=== PATIENT | male | born 1990 | race Caucasian/White ===

== ENCOUNTER 2020-07-17 09:34 | Emergency (ER) | payer OTHER, SELFPAY ==
[2020-07-17] VITALS (26 sets, daily range): BP systolic 118–145; BP diastolic 58–81; PULSE 75–108; RESP 14–18; TEMP 36.6; O2SAT 99–100
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
[2020-07-17 10:11] LABS: Abs Immature Grans 0.01 10^3/uL (0.0-0.06); Absolute Basophil Count 0.03 10^3/uL (0.0-0.2); Absolute Lymphocyte Count 1.48 10^3/uL (1.2-3.4); Absolute Monocyte Count 0.38 10^3/uL (0.1-0.8); Absolute Neutrophil Count 3.35 10^3/uL (1.2-6.7); Basophils % 0.6; Eosinophils % 1.9; HGB 16.7 g/dL (13.5-17.5); Immature Grans % 0.2; Lymphocytes % 27.7; MCH 30.5 pg (27.0-33.0); MCHC 35.5 % (32.0-36.0); MCV 85.9 fL (80-95); MPV 9.5 fL (8.0-11.0); Monocytes % 7.1; Neutrophils % 62.5; Nucleated RBC 0 %; Platelet Count 230 10^3/uL (130-400); RBC 5.47 10^6/uL (4.36-5.78); RDW 11.8 % (11.8-14.1); RDW-SD 37.2 fL; WBC 5.35 10^3/uL (4.4-10.8)
[2020-07-17] MEDS: Normal Saline 1,000 ML 1000 ML IV (10:20)
[2020-07-17] MEDS: Normal Saline - Diluent 50 ML VIAL IV (10:32)
[2020-07-17] MEDS: Normal Saline Flush 10 ML SYR IVP (10:33)
[2020-07-17 10:44] LABS: ALT 23 U/L (16-63); AST 11 U/L (15-37); Albumin 4.3 g/dL (3.4-5.0); Alkaline Phosphatase 70 U/L (46-116); Anion Gap 12.3 mmol/L (3-11); BUN 13 mg/dL (7-18); Bilirubin, Total 0.7 mg/dL (0.2-1.0); CO2 24.7 mmol/L (21.0-32.0); CREATININE 1.1 mg/dL (0.70-1.30); Calcium 9.2 mg/dL (8.5-10.1); Chloride 103 mmol/L (98-107); Glucose 103 mg/dL (74-106); Potassium 3.4 mmol/L (3.5-5.1); Sodium 140 mmol/L (136-145); Total Protein 7.7 g/dL (6.4-8.2)
[2020-07-17] MEDS: Ketorolac 30 MG/ML VIAL IVP (11:37)
== END 2020-07-17 12:13 | disposition home or self-care (01) ==
PROVIDERS: Emergency Provider Physician Assistant; PCP Physician Assistant
DX: S16.1XXA Strain of muscle, fascia and tendon at neck level, initial encounter (principal); S39.012A Strain of muscle, fascia and tendon of lower back, initial encounter; V89.2XXA Person injured in unspecified motor-vehicle accident, traffic, initial encounter
CPT/HCPCS: 74177; 80053; 96361; 96374; 99285; 70450; 71260; 72125; 85025; 99283; J1885

== ENCOUNTER 2020-07-26 11:05 | Outpatient (CLI) | payer OTHER, SELFPAY ==
--- NOTE | 2020-08-27 08:43 | W.CARDEVENT ---
Date of service: 08/27/20 Time of Service: 08:43 Cardiac Event Recorder Referring Provider:: Amber Indications:: Palpitation Cardiac Event Note: This is a 30-day monitor order for indication of palpitations. ?The patient was monitored for total of 11 days over the 30-day recorder. ?The patient was in normal sinus rhythm for the majority of the recording with an average heart rate of 82 bpm. ?There were no episodes of supraventricular tachycardia and 1 brief 3 beat run of NSVT. ?There were no episodes of atrial fibrillation, no pauses greater than 3 seconds and no evidence of high degree heart block. ?There were 4 patient triggered events 1 of us was associated with a 3 beat run of NSVT. The rest associated with sinus tachycardia.
== END 2020-07-26 11:06 | disposition home or self-care (01) ==
LOC: RT 11:06
PROVIDERS: PCP Physician Assistant; Visit Provider Nurse Practitioner Family
DX: R00.2 Palpitations (principal); Z53.20 Procedure and treatment not carried out because of patient's decision for unspecified reasons
CPT/HCPCS: 93270

== ENCOUNTER 2020-09-06 09:11 | Outpatient (CLI) | payer OTHER, SELFPAY ==
--- NOTE | 2020-09-06 08:45 | DI.RAD_ITS ---
Exam(s) XR WRIST RT COMPLETE EXAM: XR WRIST RT COMPLETE CLINICAL HISTORY: RIGHT WRIST PAIN. TECHNIQUE: 2D digital imaging was performed. COMPARISON: No exams were available for comparison FINDINGS: BONES: No acute fracture is present. No bony destructive lesion is seen. JOINTS: The carpal bones are normally aligned. SOFT TISSUE: Normal. IMPRESSION: Unremarkable radiographs of the right wrist. DATA REPOSITORY: RADIATION DOSE DELIVERED:
--- NOTE | 2020-09-06 08:45 | DI.RAD_ITS ---
Exam(s) XR WRIST LT COMPLETE EXAM: XR WRIST LT COMPLETE CLINICAL HISTORY: LEFT WRIST PAIN. TECHNIQUE: 2D digital imaging was performed. COMPARISON: No exams were available for comparison FINDINGS: BONES: No acute fracture is present. No bony destructive lesion is seen. JOINTS: The carpal bones are normally aligned. SOFT TISSUE: Normal. IMPRESSION: Unremarkable radiographs of the left wrist. DATA REPOSITORY: RADIATION DOSE DELIVERED:
--- NOTE | 2020-09-06 08:45 | DI.RAD_ITS ---
Exam(s) XR ELBOW RT COMPLETE EXAM: XR ELBOW RT COMPLETE CLINICAL HISTORY: RIGHT ELBOW PAIN. TECHNIQUE: 2D digital imaging was performed. COMPARISON: No exams were available for comparison FINDINGS: BONES: No acute fracture is present. No bony destructive lesion is seen. JOINTS: The elbow is normally aligned. No joint effusion is seen. SOFT TISSUE: Normal. IMPRESSION: Unremarkable radiographs of the right elbow. DATA REPOSITORY: RADIATION DOSE DELIVERED:
--- NOTE | 2020-09-06 08:45 | DI.RAD_ITS ---
Exam(s) XR ELBOW LT COMPLETE EXAM: XR ELBOW LT COMPLETE CLINICAL HISTORY: ELBOW PAIN. TECHNIQUE: 2D digital imaging was performed. COMPARISON: No exams were available for comparison FINDINGS: BONES: No acute fracture is present. No bony destructive lesion is seen. JOINTS: The elbow is normally aligned. No joint effusion is seen. SOFT TISSUE: Normal. IMPRESSION: Unremarkable radiographs of the left elbow. DATA REPOSITORY: RADIATION DOSE DELIVERED:
== END 2020-09-06 09:12 | disposition home or self-care (01) ==
LOC: DIORS 09:12
PROVIDERS: PCP Physician Assistant; Referring Provider Physician Assistant; Visit Provider Student in an Organized Health Care Education/Training Program
DX: M25.531 Pain in right wrist (principal); M25.532 Pain in left wrist; M25.521 Pain in right elbow; M25.522 Pain in left elbow
CPT/HCPCS: 73080; 73110

== ENCOUNTER 2021-08-18 15:10 | Outpatient (REF) | payer BC, SELFPAY ==
[2021-08-18 16:00] LABS: Hemoglobin A1C 5.1 % (<5.7)
[2021-08-18 16:13] LABS: Magnesium 1.9 mg/dL (1.8-2.4)
== END 2021-08-18 15:11 | disposition home or self-care (01) ==
LOC: NCHCN 15:10
PROVIDERS: PCP Physician Assistant; Visit Provider Nurse Practitioner Family
DX: Z00.00 Encounter for general adult medical examination without abnormal findings (principal); Z13.1 Encounter for screening for diabetes mellitus
CPT/HCPCS: 83036; 83735

== ENCOUNTER 2022-09-03 16:28 | Outpatient (REF) | payer OTHER, SELFPAY ==
[2022-09-03 19:08] LABS: ALT 23 U/L (16-63); AST 21 U/L (15-37); Albumin 4.3 g/dL (3.4-5.0); Alkaline Phosphatase 71 U/L (46-116); Anion Gap 6.3 mmol/L (3-11); BUN 14 mg/dL (7-18); Bilirubin, Total 0.4 mg/dL (0.2-1.0); CO2 28.7 mmol/L (21.0-32.0); Calcium 9.2 mg/dL (8.5-10.1); Calculated LDL 88 mg/dL (<100); Chloride 106 mmol/L (98-107); Cholesterol 159 mg/dL (<200); Estimated GFR 102.55 (mL/min/1.73m2); Glucose 93 mg/dL (74-106); HDL Cholesterol 43 mg/dL (40-60); Potassium 3.9 mmol/L (3.5-5.1); Sodium 141 mmol/L (136-145); Total Protein 7.5 g/dL (6.4-8.2); Triglyceride 142 mg/dL (<150)
== END 2022-09-03 16:29 | disposition home or self-care (01) ==
LOC: NCHCN 16:28
PROVIDERS: PCP Physician Assistant; Visit Provider Nurse Practitioner Family
DX: Z00.00 Encounter for general adult medical examination without abnormal findings (principal); Z83.49 Family history of other endocrine, nutritional and metabolic diseases
CPT/HCPCS: 80053; 80061

== ENCOUNTER 2022-09-16 01:44 | Outpatient (CLI) | payer OTHER, SELFPAY ==
--- NOTE | 2022-09-16 14:38 | DI.RAD_ITS ---
Exam(s) XR SHOULDER LT COMPLETE 2+V EXAM: XR SHOULDER LT COMPLETE 2+V CLINICAL HISTORY: LT SHOULDER PAIN, M25.512. TECHNIQUE: 2D digital imaging was performed of the left shoulder. Five images were obtained. AP, G rashey, Y-view and axillary views were obtained. COMPARISON: No exams were available for comparison FINDINGS: BONES: No acute fracture is present. No bony destructive lesion is seen. JOINTS: No dislocation present. The joint spaces are well maintained. SOFT TISSUE: Normal. IMPRESSION: Unremarkable radiographs of the left shoulder. DATA REPOSITORY: RADIATION DOSE DELIVERED:
== END 2022-09-16 02:04 ==
LOC: DI 01:45
PROVIDERS: PCP Physician Assistant; Visit Provider Nurse Practitioner Family
DX: M25.512 Pain in left shoulder (principal)
CPT/HCPCS: 73030

== ENCOUNTER → 2022-11-02 01:22 | Outpatient (CLI) | payer OTHER, SELFPAY ==
--- NOTE | 2022-11-02 07:36 | DI.MRI_ITS ---
Exam(s) MR UPPER JOINT LT WO EXAM: MR UPPER JOINT LT WO CLINICAL HISTORY: L SHOULDER PAIN,tendinopathy lt biceps tendon,[id number]. TECHNIQUE: Multiplanar multisequence MRI was performed. COMPARISON: 16 September 2022 FINDINGS: BONES: There is no fracture or contusion pattern. JOINTS:The acromioclavicular joint is normal. The glenohumeral joint is normal. TENDONS: Supraspinatus: Mild amount of edema anteriorly. No evidence of tear or significant thickening. Infraspinatus: Unremarkable. Subscapularis: Unremarkable. Teres [place]: Unremarkable. Biceps and [place]: Unremarkable. MUSCLES: Unremarkable. GLENOID LABRUM: Unremarkable on this noncontrast examination. SOFT TISSUES: Unremarkable. OTHER: Subacromial and subdeltoid bursae shows minimal fluid.. IMPRESSION: Mild supraspinatus tendinosis. The biceps tendon appears intact.. DATA REPOSITORY:
== END ==
PROVIDERS: PCP Nurse Practitioner Family; Visit Provider Student in an Organized Health Care Education/Training Program
DX: M67.813 Other specified disorders of tendon, right shoulder (principal)
CPT/HCPCS: 73221

== ENCOUNTER 2022-12-28 16:59 | Outpatient (REF) | payer OTHER, SELFPAY ==
[2022-12-28 16:56] LABS: Source Nasal/Nares
[2022-12-28 17:52] LABS: COVID-19 PCR Negative (Negative)
== END 2022-12-28 17:00 | disposition home or self-care (01) ==
LOC: LBN 16:59
PROVIDERS: PCP Nurse Practitioner Family; Visit Provider Nurse Practitioner Family
DX: Z20.822 Contact with and (suspected) exposure to COVID-19 (principal); R05.1 Acute cough
CPT/HCPCS: 87635

== ENCOUNTER → 2023-01-08 21:10 | Outpatient (CLI) | payer OTHER, SELFPAY ==
--- NOTE | 2023-01-08 13:56 | DI.RAD_ITS ---
Exam(s) XR CHEST 2V PA LATERAL EXAM: XR CHEST 2V PA LATERAL CLINICAL HISTORY: ACUTE COUGH R05.1 ? PNEUMONIA TECHNIQUE: 2D digital imaging was performed. COMPARISON: CT CT CHEST/ABD/PEL W from 07/17/2020 FINDINGS: HEART: Normal size. Aorta: Not dilated. PULMONARY VASCULATURE: Normal. LUNGS: Clear. PLEURAL SPACE: No pleural effusion or pneumothorax. BONE:Unremarkable for age. IMPRESSION: No acute abnormality. DATA REPOSITORY: RADIATION DOSE DELIVERED:
== END ==
PROVIDERS: PCP Nurse Practitioner Family; Visit Provider Physician Assistant Medical
DX: R05.1 Acute cough (principal)
CPT/HCPCS: 71046

== ENCOUNTER 2023-03-15 14:16 | Outpatient (REF) | payer OTHER, SELFPAY ==
[2023-03-15 14:52] LABS: Source Nasal/Nares
[2023-03-15 15:20] LABS: Abs Immature Grans 0.01 10^3/uL (0.0-0.06); Absolute Basophil Count 0.02 10^3/uL (0.0-0.2); Absolute Eosinophil Count 0.07 10^3/uL (0.0-0.7); Absolute Lymphocyte Count 1.21 10^3/uL (1.2-3.4); Absolute Monocyte Count 0.31 10^3/uL (0.1-0.8); Absolute Neutrophil Count 1.22 10^3/uL (1.2-6.7); Basophils % 0.7; Eosinophils % 2.5; HCT 45.2 % (40.0-50.0); HGB 15.9 g/dL (13.5-17.5); Immature Grans % 0.4; Lymphocytes % 42.6; MCH 30.3 pg (27.0-33.0); MCHC 35.2 % (32.0-36.0); MCV 86 fL (80-95); MPV 10.3 fL (8.0-11.0); Monocytes % 10.9; Neutrophils % 42.9; Platelet Count 139 10^3/uL (130-400); RBC 5.24 10^6/uL (4.36-5.78); RDW 12.1 % (11.8-14.1); RDW-SD 38.5 fL; WBC 2.84 10^3/uL (4.4-10.8)
[2023-03-15 15:53] LABS: COVID-19 PCR Negative (Negative)
== END 2023-03-15 14:17 | disposition home or self-care (01) ==
LOC: LBN 14:16
PROVIDERS: PCP Nurse Practitioner Family; Visit Provider Nurse Practitioner Family
DX: R05.8 Other specified cough (principal); R51.9 Headache, unspecified; Z20.822 Contact with and (suspected) exposure to COVID-19
CPT/HCPCS: 87635; 85025

== ENCOUNTER → 2023-06-04 12:45 | Outpatient (CLI) | payer OTHER, SELFPAY ==
--- NOTE | 2023-06-04 09:50 | DI.RAD_ITS ---
Exam(s) XR CHEST 2V PA LATERAL EXAM: XR CHEST 2V PA LATERAL CLINICAL HISTORY: COUGH R05.9 TECHNIQUE: 2D digital imaging was performed of the chest. Two images were obtained. PA and lateral views were obtained. COMPARISON: CR XR CHEST 2V PA LATERAL from 01/08/2023 FINDINGS: MEDIASTINUM: Normal. HEART: Normal. PULMONARY VASCULATURE: Normal. LUNGS: Clear. PLEURAL SPACE: No pleural effusion or pneumothorax. BONE:Within normal limits for the patient's age. OTHER FINDINGS:Normal. IMPRESSION: No acute pulmonary findings. DATA REPOSITORY: RADIATION DOSE DELIVERED:
== END ==
PROVIDERS: PCP Nurse Practitioner Family; Visit Provider Nurse Practitioner Family
DX: R05.9 Cough, unspecified (principal)
CPT/HCPCS: 71046

== ENCOUNTER 2023-06-17 05:50 | Outpatient (CLI) | payer OTHER, SELFPAY ==
[2023-06-17] MEDS: Albuterol HFA 18 GM 200 PUFF INH IH (16:46)
[2023-06-17] MEDS: Methacholine 100 MG VIAL IH (16:46)
[2023-06-17] MEDS: Inhaler, Assist Device 1 EACH MC (16:47)
--- NOTE | 2023-06-21 08:15 | W.PFT ---
Date of service: 06/17/23 Time of Service: 14:18 Pulmonary Function Test Result Indications: Cough Interpretation Spirometry: There is no baseline airflow obstruction. There was a decrease in FEV1 of 37% with administration of 2.0mg/mL methacholine. Lung Volumes: Normal lung volumes. Diffusion Capacity: Elevated diffusion Airway Pressure: Normal airways resistance Impression Positive methacholine challenge test and otherwise normal lung function. Elevated diffusion may be due to an elevated BMI. Clinical Correlation therefore is recommended.
== END 2023-06-17 05:51 | disposition home or self-care (01) ==
LOC: RT 05:50
PROVIDERS: PCP Nurse Practitioner Family; Visit Provider Student in an Organized Health Care Education/Training Program
DX: R05.9 Cough, unspecified (principal)
CPT/HCPCS: 94060; 94070; 94726; 94729; 94010; J7674

== ENCOUNTER 2023-07-15 16:32 | Outpatient (REF) | payer OTHER, SELFPAY ==
[2023-07-15 18:47] LABS: HCT 44.7 % (40.0-50.0); HGB 15.6 g/dL (13.5-17.5); MCH 30.9 pg (27.0-33.0); MCHC 34.9 % (32.0-36.0); MCV 89 fL (80-95); MPV 9.7 fL (8.0-11.0); Platelet Count 274 10^3/uL (130-400); RBC 5.05 10^6/uL (4.36-5.78); RDW 12.5 % (11.8-14.1); RDW-SD 40.6 fL; WBC 6.44 10^3/uL (4.4-10.8)
[2023-07-15 19:10] LABS: Hemoglobin A1C 5.3 % (<5.7)
[2023-07-15 19:20] LABS: Vitamin D 25 Total 14.7 ng/mL (30-100)
[2023-07-15 19:23] LABS: TSH (W/Ref FT4) 1.61 uIU/mL (0.36-3.74); Vitamin B12 283 pg/mL (193-986)
== END 2023-07-15 16:33 | disposition home or self-care (01) ==
LOC: NCHCN 16:32
PROVIDERS: PCP Nurse Practitioner Family; Visit Provider Nurse Practitioner Family
DX: D72.819 Decreased white blood cell count, unspecified (principal); R20.2 Paresthesia of skin; E83.42 Hypomagnesemia; E55.9 Vitamin D deficiency, unspecified; Z13.1 Encounter for screening for diabetes mellitus; Z83.3 Family history of diabetes mellitus
CPT/HCPCS: 82306; 85027; 82607; 83036; 83735; 84443

== ENCOUNTER 2023-09-07 18:12 | Outpatient (REF) | payer OTHER, SELFPAY | END 2023-09-07 18:13 | disposition home or self-care (01) | LOC: LBN 18:12 | PROVIDERS: PCP Nurse Practitioner Family; Visit Provider Nurse Practitioner Family | DX: J02.9 Acute pharyngitis, unspecified (principal) | CPT/HCPCS: 87070 ==

== ENCOUNTER 2023-10-08 07:56 | Emergency (ER) | payer OTHER, SELFPAY ==
[2023-10-08 07:58] VITALS: BP 168/97; PULSE 95; RESP 13; TEMP 36.8; O2SAT 99
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
[2023-10-08 09:24] VITALS: BP 133/88; PULSE 69; RESP 20; TEMP 36.2; O2SAT 99
[2023-10-08] MEDS: Acetaminophen 325 MG TAB (09:32)
== END 2023-10-08 10:11 | disposition home or self-care (01) ==
PROVIDERS: Emergency Provider Student in an Organized Health Care Education/Training Program; PCP Nurse Practitioner Family
DX: S16.1XXA Strain of muscle, fascia and tendon at neck level, initial encounter (principal); S06.0X0A Concussion without loss of consciousness, initial encounter; S20.224A Contusion of middle back wall of thorax, initial encounter; Z87.891 Personal history of nicotine dependence; V43.52XA Car driver injured in collision with other type car in traffic accident, initial encounter
CPT/HCPCS: 99284; 70450; 72125; 72128

== ENCOUNTER 2023-10-25 13:18 | Emergency (ER) | payer OTHER, SELFPAY ==
[2023-10-25 13:25] VITALS: BP 170/76; PULSE 84; RESP 12; TEMP 36.8; O2SAT 97
--- NOTE | 2023-10-25 16:00 | DI.RAD_ITS ---
Exam(s) XR TIB/FIB LT XR ANKLE LT COMPLETE EXAM: XR TIB/FIB LT and XR ankle LT complete CLINICAL HISTORY: anterior ankle and dunbar pain. TECHNIQUE: 2D digital imaging was performed of the left ankle, tibia and fibula. Seven images were o btained. The, oblique and lateral views were obtained. COMPARISON: No previous for comparison. FINDINGS: BONES: No acute fracture is present. No bony destructive lesion is seen. The visualized knee appears well maintained. The ankle mortise is intact and normally aligned. SOFT TISSUE: Normal. IMPRESSION: No acute fracture or dislocation. No periosteal reaction is seen. DATA REPOSITORY: RADIATION DOSE DELIVERED:
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
[2023-10-25] MEDS: Ketorolac 15 MG/ML VIAL IM (16:34)
[2023-10-25] MEDS: Cyclobenzaprine 10 MG TAB PO (16:34)
[2023-10-25] MEDS: Lidocaine 5% Patch 1 PATCH TP (16:35)
[2023-10-25 17:20] VITALS: BP 157/86; PULSE 88; RESP 16; O2SAT 99
== END 2023-10-25 17:22 | disposition home or self-care (01) ==
PROVIDERS: Emergency Provider Emergency Medicine; PCP Nurse Practitioner Family
DX: M25.572 Pain in left ankle and joints of left foot (principal)
CPT/HCPCS: 99283; 73590; 73610; J1885

== ENCOUNTER 2023-11-04 22:40 | Outpatient (REF) | payer OTHER, SELFPAY ==
[2023-11-04 11:25] LABS: Uric Acid 6.6 mg/dL (3.5-7.2)
== END 2023-11-04 22:41 | disposition home or self-care (01) ==
LOC: NCHCN 22:40
PROVIDERS: PCP Nurse Practitioner Family; Visit Provider Nurse Practitioner Family
DX: M25.572 Pain in left ankle and joints of left foot (principal)
CPT/HCPCS: 84550

== ENCOUNTER 2023-12-20 13:57 | Outpatient (CLI) | payer OTHER, SELFPAY ==
--- NOTE | 2023-12-20 | DI.RAD_ITS ---
Exam(s) XR SHOULDER RT COMPLETE 2+V EXAM: XR SHOULDER RT COMPLETE 2+V CLINICAL HISTORY: Pain in rt shoulder s/p slipping down ladder 4 days ago, caught himself. TECHNIQUE: 2D digital imaging was performed of the right shoulder. Five images were obtained. AP, Grashey, Y-view and axillary views were obtained. COMPARISON: No exams were available for comparison FINDINGS: BONES: No acute fracture is present. No bony destructive lesion is seen. JOINTS: No dislocation present. The acromioclavicular and glenohumeral joints are unremarkable. SOFT TISSUE: Normal. IMPRESSION: Unremarkable radiographs of the right shoulder. DATA REPOSITORY: RADIATION DOSE DELIVERED:
== END 2023-12-20 14:17 ==
LOC: DI 14:02
PROVIDERS: PCP Nurse Practitioner Family; Visit Provider Nurse Practitioner Family
DX: M25.511 Pain in right shoulder (principal)
CPT/HCPCS: 73030

== ENCOUNTER 2024-03-17 13:04 | Outpatient (CLI) | payer OTHER, SELFPAY ==
--- NOTE | 2024-03-17 15:27 | DI.RAD_ITS ---
Exam(s) XR HIP LT COMPLETE AP PELVIS EXAM: XR HIP LT COMPLETE AP PELVIS CLINICAL HISTORY: LT HIP JOINT PAIN, M25.552. TECHNIQUE: 2D digital imaging was performed. COMPARISON: No exams were available for comparison FINDINGS: Two views. No evidence of pelvic nor hip fracture. No hip joint space narrowing. Additional lateral view of th e left hip reveals no joint space narrowing nor osteophytes. No osseous lesions. No evidence of nidia scular necrosis. Sacroiliac joints appear unremarkable. IMPRESSION: No significant osseous findings in the pelvis and hips. DATA REPOSITORY: RADIATION DOSE DELIVERED:
== END 2024-03-17 13:24 ==
LOC: DI 13:06
PROVIDERS: PCP Nurse Practitioner Family; Visit Provider Nurse Practitioner Family
DX: M25.552 Pain in left hip (principal)
CPT/HCPCS: 73502

== ENCOUNTER 2024-06-07 03:34 | Outpatient (CLI) | payer OTHER, SELFPAY ==
--- NOTE | 2024-06-07 10:00 | DI.MRI_ITS ---
Exam(s) MR LUMBAR SPINE WO EXAM: MR LUMBAR SPINE WO CLINICAL HISTORY: Radiculopathy, lumbosacral region, M54.17. TECHNIQUE: Multiplanar multisequence MRI of the Lumbar spine was performed. COMPARISON: No exams were available for comparison FINDINGS: Bones: The last intervertebral disc space is designated the L5/S1 level for the numbering purpose of this examination. The vertebral body heights are well maintained. Alignment is satisfactory. The si gnal characteristics are unremarkable. Cord: The conus tip ends at the T12 level. It is of normal size and signal intensity. T12-L1: No disc herniations or bulges are present. No central spinal canal or neural foraminal stenos is. L1-2: No disc herniations or bulges are present. No central spinal canal or neural foraminal stenosis . L2-3: No disc herniations or bulges are present. No central spinal canal or neural foraminal stenosis . L3-4: No disc herniations or bulges are present. No central spinal canal or neural foraminal stenosis . L4-5: There is a mild diffuse disc bulge and a small central disc herniation. There is mild narrowin g of the central spinal canal. There is also mild narrowing of the neural foramen bilaterally. L5-S1: There is a small central disc herniation. No nerve root compression is seen. No central spin al canal or neural foraminal stenosis. Soft tissues: The visualized SI joints and sacrum are well maintained. The paraspinal soft tissues ar e unremarkable. IMPRESSION: 1. Small central disc herniation at L5-S1 without nerve root compression, central spinal canal or rosalina ral foraminal stenosis. 2. Mild diffuse disc bulge and small central disc herniation at L4-L5 causing mild narrowing of the c entral spinal canal and the neural foramen bilaterally. DATA REPOSITORY:
--- NOTE | 2024-06-07 10:45 | DI.MRI_ITS ---
Exam(s) MR LOWER JOINT LT WO EXAM: MR LOWER JOINT LT WO CLINICAL HISTORY: Lt hip pain, M25.552, has not responded to PT TECHNIQUE: Multiplanar multisequence MRI of left hip was performed COMPARISON: No exams were available for comparison FINDINGS: Bones: There is no evidence of a fracture or avascular necrosis. No significant joint effusion or l abral injury is present. No bone marrow edema is seen. The SI joints and symphysis pubis are well gisele ntained. Musculotendinous structures: Musculotendinous structures demonstrate no abnormality. Intrapelvic str uctures demonstrate no significant abnormality. IMPRESSION: Normal MRI examination the left hip. DATA REPOSITORY:
== END 2024-06-07 03:54 ==
LOC: DI 03:34
PROVIDERS: PCP Nurse Practitioner Family; Visit Provider Nurse Practitioner Family
DX: M25.552 Pain in left hip (principal); M54.17 Radiculopathy, lumbosacral region
CPT/HCPCS: 73721; 72148

== ENCOUNTER 2024-06-09 12:10 | Outpatient (CLI) | payer OTHER, SELFPAY ==
--- NOTE | 2024-06-09 | DI.RAD_ITS ---
Exam(s) XR SHOULDER RT COMPLETE 2+V EXAM: XR SHOULDER RT COMPLETE 2+V CLINICAL HISTORY: Pain in Rt shoulder M25.511. TECHNIQUE: 2D digital imaging was performed of the right shoulder. Five images were obtained. AP, Grashey, Y-view and axillary views were obtained. COMPARISON: CR XR SHOULDER RT COMPLETE 2+V from 12/20/2023 FINDINGS: BONES: No acute fracture is present. No bony destructive lesion is seen. JOINTS: No dislocation present. SOFT TISSUE: Normal. IMPRESSION: Unremarkable radiographs of the right shoulder. DATA REPOSITORY: RADIATION DOSE DELIVERED:
== END 2024-06-09 12:30 ==
LOC: DI 12:13
PROVIDERS: PCP Nurse Practitioner Family; Visit Provider Physician Assistant Medical
DX: M25.511 Pain in right shoulder (principal); M51.26 Other intervertebral disc displacement, lumbar region; M99.63 Osseous and subluxation stenosis of intervertebral foramina of lumbar region
CPT/HCPCS: 73030

== ENCOUNTER 2024-08-10 19:58 | Outpatient (REF) | payer OTHER, SELFPAY ==
[2024-08-10 20:16] LABS: Abs Immature Grans 0.01 10^3/uL (0.0-0.06); Absolute Basophil Count 0.04 10^3/uL (0.0-0.2); Absolute Eosinophil Count 0.18 10^3/uL (0.0-0.7); Absolute Lymphocyte Count 1.85 10^3/uL (1.2-3.4); Absolute Monocyte Count 0.35 10^3/uL (0.1-0.8); Absolute Neutrophil Count 2.83 10^3/uL (1.2-6.7); Basophils % 0.8 %; Eosinophils % 3.4 %; HCT 45.7 % (40.0-50.0); HGB 15.7 g/dL (13.5-17.5); Immature Grans % 0.2 %; Lymphocytes % 35.2 %; MCH 30.7 pg (27.0-33.0); MCHC 34.4 % (32.0-36.0); MCV 89 fL (80-95); MPV 10.1 fL (8.0-11.0); Monocytes % 6.7 %; Neutrophils % 53.7 %; Platelet Count 226 10^3/uL (130-400); RBC 5.11 10^6/uL (4.36-5.78); RDW 12.5 % (11.8-14.1); RDW-SD 40.9 fL; WBC 5.26 10^3/uL (4.4-10.8)
[2024-08-10 20:36] LABS: ALT 29 U/L (16-63); AST 18 U/L (15-37); Albumin 4.5 g/dL (3.4-5.0); Alkaline Phosphatase 79 U/L (46-116); Anion Gap 6.7 mmol/L (3-11); BUN 13 mg/dL (7-18); Bilirubin, Total 0.6 mg/dL (0.2-1.0); CO2 29.3 mmol/L (21.0-32.0); Calcium 9.3 mg/dL (8.5-10.1); Chloride 104 mmol/L (98-107); Estimated GFR 101.28 (mL/min/1.73m2); Glucose 94 mg/dL (74-106); Sodium 140 mmol/L (136-145); Total Protein 7.5 g/dL (6.4-8.2)
[2024-08-10 21:31] LABS: Vitamin B12 271 pg/mL (193-986); Vitamin D 25 Total 16 ng/mL (30-100)
[2024-08-13 09:48] LABS: HIV-1/2 Ag & Ab Screen Negative (Negative)
[2024-08-14 10:12] LABS: Hepatitis C Ab w Rflx HCV PCR Negative (Negative)
[2024-08-14 12:16] LABS: Chlamydia Result Negative (Negative); GC Result Negative (Negative)
[2024-08-14 12:35] LABS: Syphilis Serology (RPR) Negative (Negative)
== END 2024-08-10 19:59 | disposition home or self-care (01) ==
LOC: NCHCN 19:58
PROVIDERS: PCP Nurse Practitioner Family; Visit Provider Family Medicine
DX: Z11.3 Encounter for screening for infections with a predominantly sexual mode of transmission (principal); Z11.4 Encounter for screening for human immunodeficiency virus [HIV]; E53.8 Deficiency of other specified B group vitamins; E55.9 Vitamin D deficiency, unspecified
CPT/HCPCS: 80053; 82306; 86803; 87389; 87491; 87591; 82607; 85025; 86592

== ENCOUNTER 2024-10-17 01:46 | Outpatient (CLI) | payer OTHER, SELFPAY ==
--- NOTE | 2024-10-17 08:26 | DI.MRI_ITS ---
Exam(s) MR BRAIN WO EXAM: MR BRAIN WO CLINICAL HISTORY: ?MS,paresthesia,r20.2 TECHNIQUE: Multiplanar multisequence MRI of the brain was performed. COMPARISON: CT CT THORACIC SPINE WO from 10/08/2023 FINDINGS: VENTRICLES AND EXTRA AXIAL SPACES: Normal in size and morphology for the patient's age. MIDLINE SHIFT: None. CEREBRAL PARENCHYMA: No focus of restricted diffusion to suggest acute infarct. No space-occupying lesion identified. Single 3 millimeter high signal focus in the white matter in the posterior right frontal lobe. This is nonspecific. No periventricular signal abnormalities. BRAINSTEM/CEREBELLUM: Normal. VISUALIZED PARANASAL SINUSES: Clear. MASTOIDS:Clear. Vasculature: Normal flow void. PITUITARY GLAND: Unremarkable. ORBITS: Unremarkable. IMPRESSION: Single 3 millimeter high signal focus in the white matter of the posterior right frontal lobe which is not specific. No specific features for multiple sclerosis. DATA REPOSITORY:
--- NOTE | 2024-10-17 08:26 | DI.MRI_ITS ---
Exam(s) MR CERVICAL SPINE WO EXAM: MR CERVICAL SPINE WO CLINICAL HISTORY: bilateral arm paraesthesias and L leg,? ms,r20.2 TECHNIQUE: Multiplanar multisequence MRI of the cervical spine was performed without intravenous contrast. COMPARISON: CT CT HEAD CERVICAL SPINE WO from 10/08/2023 FINDINGS: BONES: Vertebral body heights are maintained. Alignment is normal. Bone marrow signal intensity is within normal limits. CERVICAL CORD: Craniovertebral junction is unremarkable. The cervical cord is normal size and signal intensity. SOFT TISSUES: Unremarkable. C2-3: No disc herniation or bulge is identified. No evidence of neural foraminal narrowing. No significant central canal stenosis. C3-4: No disc herniation or bulge is identified. No evidence of neural foraminal narrowing. No significant central canal stenosis. C4-5: No disc herniation or bulge is identified. No evidence of neural foraminal narrowing. No significant central canal stenosis. C5-6: Slight loss of disc height. Endplate osteophytes projecting posteriorly. Mild disc bulging. No definite impingement on the cord. Moderate right and moderate left neural foraminal narrowing. Mild central canal stenosis. C6-7: No disc herniation or bulge is identified. No evidence of neural foraminal narrowing. No significant central canal stenosis. C7-T1: No disc herniation or bulge is identified. No evidence of neural foraminal narrowing. No significant central canal stenosis. IMPRESSION: No abnormal cord lesions. Posterior disc osteophytes at C5-6 cause mild central canal stenosis and moderate right and mild left neural foraminal narrowing DATA REPOSITORY:
== END 2024-10-17 02:06 ==
LOC: DI 01:46
PROVIDERS: PCP Nurse Practitioner Family; Visit Provider Psychiatry & Neurology Neurology
DX: M48.02 Spinal stenosis, cervical region (principal)
CPT/HCPCS: 70551; 72141

== ENCOUNTER 2024-11-21 10:38 | Outpatient (CLI) | payer OTHER, SELFPAY ==
--- NOTE | 2024-11-21 06:00 | DI.RAD_ITS ---
Exam(s) XR PAIN CLINIC SACRIOILIAC 2V EXAM: XR PAIN CLINIC SACRIOILIAC 2V CLINICAL HISTORY: DX: Sacroiliac Dysfunction TECHNIQUE: 2D and realtime digital imaging was performed. CONTRAST MATERIAL: Refer to procedure report. COMPARISON: No exams were available for comparison FINDINGS: Fluoroscopy was provided for Dr. Burton during the performance of a left sacroiliac joint injection. Please refer to the procedure report for complete details. Ka,r=5.1 mGy IMPRESSION: RADIATION DOSE DELIVERED: 0.0 0.0 0
[2024-11-21 10:59] VITALS: BP 132/89; PULSE 63; RESP 20; TEMP 36.7; O2SAT 99
[2024-11-21 11:25] VITALS: PULSE 78; O2SAT 98
[2024-11-21 11:26] VITALS: BP 187/104; PULSE 75; PULSE 76; RESP 16; O2SAT 100
[2024-11-21 11:30] VITALS: PULSE 80; PULSE 81; RESP 13; O2SAT 100
[2024-11-21 11:31] VITALS: BP 170/107; PULSE 80; PULSE 86; RESP 11; O2SAT 100
--- NOTE | 2024-11-21 11:33 | PDOC.PAIN_ITS ---
Date of service: 11/21/24 Time of Service: 11:33 Pain Managment Procedure Note Procedure Note Procedure Note: PROCEDURE NOTE LEFT INTRA-ARTICULAR SACROILIAC JOINT INJECTION Date of Service: November 21, 2024 Patient: Diego Harvey Provider: Priyank Owens DO, MPH COMMENTS: I previously evaluated the patient in the office and their symptoms in relation to the sacroiliac joint pain have remained the same. Pre-operative diagnosis: Sacroiliac joint dysfunction ICD-10 M53.3 Post-operative diagnosis: Same Pre-procedure pain: VAS= 6/10 Diego Harvey has been referred to our [facility] for a Left intra-articular Sacroiliac joint injection. Diego was interviewed and the medical record reviewed. There were no medical, pharmacologic, radiographic or other structural contraindications to attempting a fluoroscopically-guided, contrast-enhanced, intra-articular Sacroiliac joint injection. The risks, benefits, and potential side effects of this procedure were reviewed with the patient. Questions and concerns were addressed. After it was clear that Diego was fully informed about the procedure, the printed consent form was signed by the patient and myself. Diego was placed in the prone position on the fluoroscopy table and an automated blood pressure cuff, 3 lead EKG, and pulse oximeter were applied. The skin entry point for approaching the Left sacroiliac joint was identified under the most advantageous fluoroscopic view and marked. Following thorough Chlorhexadine preparation of the skin and draping with sterile surgical drapes, 2 mls of 1% lidocaine was infiltrated into the skin at the entry point and the surrounding subcutaneous tissues. Next, a 3.5 22G spinal needle was placed under fluoroscopic guidance into the Left sacroiliac joint. Intra-articular placement was confirmed by a clear arthrogram resulting from the injection of 0.25ml of Omnipaque-240. Next, 1 ml of Depo- Medrol 80 mg/ml was injected intra- articularly with an initial reproduction of a significant component of the usual pain. This was followed with 1 ml of 1% Lidocaine. The needle was then removed without difficulty. (49 ml of Omnipaque-240 was wasted). Diego's vital signs were stable throughout the procedure and were as recorded in nursing records. Follow up plans and appointments were discussed with Diego. Post procedure instructions were given as documented in nursing records. Having met discharge criteria, Diego was [facility] from the [facility]. COMMENTS: Post-procedure pain: VAS= 2/10. If the patient receives at least 50% improvement in pain and/or function for at least 3 months, this procedure can be repeated if needed. I personally performed this entire procedure. PRIYANK OWENS DO, MPH ABPMR-subspecialty board certification in Pain Medicine [facility] Coding Conscious Sedation used for procedure: No CPT Codes: SI Joint Inj; incl Fluoro - 88020 ([id number] ~G) Additional Codes: Date of Service (82756) Date of service: 11/21/24 Diagnoses: Sacroiliac joint dysfunction
[2024-11-21 11:35] VITALS: BP 138/107; PULSE 70
[2024-11-21] MEDS: Omnipaque 240 MG/ML 50 ML BTL IJ (11:38)
[2024-11-21] MEDS: methylPREDNISolone ACETATE 80 MG/ML VIAL IJ (11:38)
[2024-11-21] MEDS: Nerve Block Tray 1 EACH MC (11:38)
== END 2024-11-21 10:39 | disposition home or self-care (01) ==
LOC: PC 10:38
PROVIDERS: PCP Nurse Practitioner Family; Visit Provider Preventive Medicine Occupational Medicine
DX: M53.3 Sacrococcygeal disorders, not elsewhere classified (principal)
CPT/HCPCS: 27096; 72200; J1010; Q9967

== ENCOUNTER 2024-12-19 11:39 | Emergency (ER) | payer OTHER, SELFPAY ==
[2024-12-19 11:43] VITALS: BP 141/90; PULSE 85; RESP 16; TEMP 36.8; O2SAT 98
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
[2024-12-19 13:32] VITALS: BP 151/98; PULSE 69; RESP 16; O2SAT 98
[2024-12-19 13:37] VITALS: BP 141/90; PULSE 85; RESP 16; TEMP 36.8; O2SAT 98
== END 2024-12-19 13:44 | disposition home or self-care (01) ==
PROVIDERS: Emergency Provider Emergency Medicine; PCP Nurse Practitioner Family
DX: R51.9 Headache, unspecified (principal)
CPT/HCPCS: 99283; 99282; 80048; 85025

== ENCOUNTER 2024-12-22 10:00 | Outpatient (CLI) | payer OTHER, SELFPAY ==
--- NOTE | 2024-12-22 09:04 | DI.CT_ITS ---
Exam(s) CT BRAIN CTA EXAM: CT BRAIN CTA CLINICAL HISTORY: worse headache of his life ACUTE HEADACHE R51.9. TECHNIQUE: Imaging Protocol: Axial CT angiography was performed with multi- slice acquisition and multi-planar and/or 3D reconstructions. CONTRAST MATERIAL: Intravenous: Omnipaque 350 Contrast volume:80 mL COMPARISON: CT CT THORACIC SPINE WO from 10/08/2023 MR MR BRAIN WO from 10/17/2024 FINDINGS: Ventricles and Extra axial spaces: Normal in size and morphology for the patient's age. Hemorrhage: None. Cerebral parenchyma: Normal. Midline shift: None. Brainstem/Cerebellum: Normal. Calvarium: Normal. Visualized Paranasal sinuses/Mastoids: Clear. Soft Tissues: Unremarkable. Enhancement: No abnormal enhancing lesions. CTA Brain W: Internal Carotid Arteries: Petrous: Normal. Cavernous: Normal. Cerebral: Normal. Middle Cerebral Arteries: Right: No aneurysm, occlusion or significant stenosis. Left: No aneurysm, occlusion or significant stenosis. Anterior Cerebral Arteries: Right: No aneurysm, occlusion or significant stenosis. Left: No aneurysm, occlusion or significant stenosis. Posterior cerebral Arteries: Right: No aneurysm, occlusion or significant stenosis. Left: No aneurysm, occlusion or significant stenosis. Vertebral Arteries: Right: No aneurysm, occlusion or significant stenosis. Left: No aneurysm, occlusion or significant stenosis. Basilar Artery: No aneurysm, occlusion or significant stenosis. IMPRESSION: 1. Normal CTA examination of the [place]. 2. Unremarkable CT Head. RADIATION DOSE DELIVERED: 2,127.8mGy.cm Total DLP 2,127.8mGy.cm Total DLP DATA REPOSITORY: All CT scans at this facility are submitted to the National Radiology Data Registry (NRDR) Dose Index Registry (DIR) with the [employer] ([employer]). RADIATION OPTIMIZATION: All CT scans at this facility use at least one of these dose optimization techniques: automated exposure control; mA and/or kV adjustment per patient size (includes targeted exams where dose is matched to clinical indication); or iterative reconstruction.
[2024-12-22] MEDS: Omnipaque 350 MG/ML 100 ML BTL IJ (15:11)
[2024-12-22] MEDS: Normal Saline Flush 10 ML SYR IVP (15:12)
[2024-12-22] MEDS: Normal Saline - Diluent 50 ML VIAL IJ (15:12)
== END 2024-12-22 10:20 ==
LOC: DI 10:01
PROVIDERS: PCP Nurse Practitioner Family; Visit Provider Psychiatry & Neurology Neurology
DX: R51.9 Headache, unspecified (principal)
CPT/HCPCS: 70496; J3490

== ENCOUNTER 2025-01-15 13:35 | Outpatient (REF) | payer OTHER, SELFPAY | END 2025-01-15 13:36 | disposition home or self-care (01) | LOC: NCHCN 13:35 | PROVIDERS: PCP Nurse Practitioner Family; Visit Provider Nurse Practitioner Family | DX: N46.9 Male infertility, unspecified (principal) | CPT/HCPCS: 89240; 89310 ==